=== PATIENT | male | born 1945 | race Caucasian/White ===

== ENCOUNTER 2019-01-24 10:41 | Emergency (ER) | payer BC, OTHER ==
[2019-01-24 11:40] VITALS: BP 142/66
--- NOTE | 2019-01-24 12:06 | UC ---
Knee Pain HPI - HPI Summary HPI Summary: 73 yo male injured his left leg at work 2 weeks ago His left leg was caught btw a rolling car and a stationary one He was seen at [facility] and had his left knee xrayed Here because of persistent pain/swelling - History of Current Complaint Chief Complaint: UCLowerExtremity Stated Complaint: WC-LEFT LEG INJURY(01/11/19)-HAD XRAYS AT HOSPITAL Time Seen by Provider: 01/24/19 11:41 Onset/Duration: Sudden Onset, Lasting Weeks Severity Initially: Moderate Severity Currently: Severe Pain Intensity: 7 Pain Scale Used: 0-10 Numeric Character: Aching, Throbbing, Spasmodic Aggravating Factor(s): Movement, Weight Bearing Alleviating Factor(s): Rest Associated Signs And Symptoms: Positive: Swelling, Bruising Able to Bear Weight: Yes Legs: 1 - hematoma 2 - diffuse swelling from here down 3 - ecchymotic - Allergies/Home Medications Allergies/Adverse Reactions: Allergies Allergy/AdvReac Type Severity Reaction Status Date / Time No Known Allergies Allergy Verified 01/24/19 11:33 Home Medications: Home Medications Acetaminophen [Acetaminophen Extra Strength] 1,000 mg PO Q4H PRN 01/24/19 [ History Confirmed 01/24/19] Atorvastatin* [Lipitor*] 80 mg PO DAILY 01/24/19 [History Confirmed 01/24/19] Glimepiride 4 mg PO DAILY 01/24/19 [History Confirmed 01/24/19] Lisinopril/Hydrochlorothiazide [Lisinopril-Hctz 20-12.5 mg Tab] 1 each PO DAILY 01/24/19 [History Confirmed 01/24/19] Nebivolol (NF) [Bystolic (NF)] 10 mg PO DAILY 01/24/19 [History Confirmed ] PMH/Surg Hx/FS Hx/Imm Hx Previously Healthy: Yes Endocrine History: Diabetes, Dyslipidemia Cardiovascular History: Cardiac Disease, Hypertension GI/ History: Kidney Stones - Surgical History Surgical History: Yes Surgery Procedure, Year, and Place: CARDIAC BYPASS 2009, APPY 1972, LITHOTRIPSY 2009 - Social History Alcohol Use: Occasionally Substance Use Type: None Smoking Status (MU): Never Smoked Tobacco Review of Systems All Other Systems Reviewed And Are Negative: Yes Constitutional: Positive: Negative Skin: Positive: Bruising Eyes: Positive: Negative ENT: Positive: Negative Respiratory: Positive: Negative Cardiovascular: Positive: Negative Gastrointestinal: Positive: Negative Genitourinary: Positive: Negative Motor: Positive: Negative Neurovascular: Positive: Negative Musculoskeletal: Positive: Arthralgia, Calf Tenderness, Edema Neurological: Positive: Negative Psychological: Positive: Negative Physical Exam Triage Information Reviewed: Yes Appearance: Well-Appearing, No Pain Distress, Well-Nourished Vital Signs: Initial Vital Signs Temp 97.6 F 01/24/19 11:28 Pulse 56 01/24/19 11:28 Resp 16 01/24/19 11:28 BP 142/66 01/24/19 11:28 Pulse Ox 98 01/24/19 11:28 Vital Signs Reviewed: Yes Eyes: Positive: Conjunctiva Clear ENT: Negative: Hearing grossly normal, Nasal congestion, Nasal drainage, Trismus , Muffled voice, Hoarse voice Dental Exam: Normal Neck: Positive: Supple, Nontender Respiratory: Positive: Lungs clear, Normal breath sounds, No respiratory distress Cardiovascular: Positive: RRR, No Murmur Abdominal Exam: Normal Musculoskeletal: Positive: Other: - see image Neurological: Positive: Alert Psychological Exam: Normal Skin Exam: Other - see image Knee Pain Course/Dx - Differential Dx/Diagnosis Provider Diagnosis: Hematoma of left lower extremity, Effusion, left knee Discharge ED - Sign-Out/Discharge Documenting (check all that apply): Patient Departure All imaging exams completed and their final reports reviewed: Yes - Discharge Plan Condition: Stable Disposition: HOME Patient Education Materials: Knee Pain (ED), Contusion in Adults (ED) Referrals: Tyrone Guan MD [Medical Doctor] - 1 Day Additional Instructions: call today with your workers comp info bring copies of films - Billing Disposition and Condition Condition: STABLE Disposition: Home
== END 2019-01-24 13:12 | disposition home or self-care (01) ==
LOC: UCCORT 10:41
DX: S80.12XA Contusion of left lower leg, initial encounter (principal); I10 Essential (primary) hypertension; E11.9 Type 2 diabetes mellitus without complications; M25.462 Effusion, left knee; Z79.899 Other long term (current) drug therapy; Z79.84 Long term (current) use of oral hypoglycemic drugs; W23.1XXA Caught, crushed, jammed, or pinched between stationary objects, initial encounter; Y92.9 Unspecified place or not applicable
CPT/HCPCS: 99201; G0463